=== PATIENT | female | born 1990 | race African-American/Black ===

== ENCOUNTER 2016-12-24 22:05 | Emergency (ER) | payer OTHER ==
[~2016-12-24] VITALS: Ht 162.6 cm; Wt 127.3 kg
[~2016-12-24 22:05] MED LIST: GABA-531 PO; MELO-273 PO
[2016-12-24] MEDS ORDERED: CYCL10 PO (22:36)
[2016-12-24] MEDS ORDERED: MUPI1OIN5 TP (22:36)
[2016-12-24] MEDS ORDERED: IBUP-1547 PO (22:36)
[2016-12-24 23:57] VITALS: BP 146/101
== END 2016-12-25 00:09 | disposition home or self-care (01) ==
LOC: EMS 22:08
DX: H57.8 Other specified disorders of eye and adnexa (principal); J45.909 Unspecified asthma, uncomplicated; F17.210 Nicotine dependence, cigarettes, uncomplicated; Z91.010 Allergy to peanuts
CPT/HCPCS: 99281